=== PATIENT | female | born 1940 | race Caucasian/White ===

== ENCOUNTER 2018-05-04 15:16 | Inpatient (IN) | payer MEDICARE ==
[~2018-05-04] VITALS: Ht 157.5 cm; Wt 78.2 kg
[~2018-05-04 15:16] MED LIST: ASCO10007 PO; Aspirin PO; CELE200 PO; ESTR-7 PO; HYDR-2132 PO; MULT1TAB70 PO; PRAV40TA3 PO; RABE20TA27 PO; SPIR25TA6 PO; TRIA1CAP6 PO
[2018-05-04 16:15] LABS: BASOPHILS % (AUTO) 1.5 % (0.0-5.0); EOSINOPHILS % (AUTO) 1.7 % (0.0-8.0); HEMATOCRIT 43.2 % (36-48); LYMPHOCYTES % (AUTO) 24.2 % (21.0-51.0); MEAN CORPUSCULAR HEMOGLOBIN 31.1 pg (27.0-33.0); MEAN CORPUSCULAR HGB CONC 33.8 g/dL (32.0-36.0); MEAN CORPUSCULAR VOLUME 92.2 fL (79-99); NEUTROPHILS % (AUTO) 65.6 % (40.0-77.0); NUCLEATED RED BLOOD CELLS 0.1 % (0.0-0.19); PLATELET COUNT (AUTO) 314 K/uL (130-400); RED BLOOD CELL COUNT(AUTO) 4.68 MIL/uL (4.00-5.50); RED CELL DISTRIBUTION WIDTH 12.6 % (11.0-15.5); WHITE BLOOD COUNT (AUTO) 8.7 K/uL (4.8-10.8)
[2018-05-04 16:41] LABS: APPEARANCE,URINE CLEAR (CLEAR); BILIRUBIN,URINE NEGATIVE (NEGATIVE); COLOR,URINE YELLOW (YELLOW); GLUCOSE, URINE (UA) NEGATIVE (NEGATIVE); KETONES,URINE NEGATIVE (NEGATIVE); LEUKOCYTE ESTERASE ,URINE TRACE (NEGATIVE); NITRATE,URINE NEGATIVE (NEGATIVE); OCCULT BLOOD,URINE NEGATIVE (NEGATIVE); PH,URINE 7.5 (5.0-8.0); PROTEIN,URINE NEGATIVE (NEGATIVE); UROBILINOGEN,URINE 0.2 mg/dL (0.2-1.0)
[2018-05-04 16:43] LABS: INR 0.93 (0.85-1.15); PARTIAL THROMBOPLASTIN TIME 29.4 SEC (26.3-35.5); PROTHROMBIN TIME 9.8 SEC (9.6-11.6)
[2018-05-04 16:50] LABS: ALBUMIN 3.8 g/dL (3.5-5.0); BILIRUBIN,TOTAL 0.4 mg/dL (0.2-1.0); TOTAL PROTEIN, SERUM 7.6 g/dL (6.0-8.3)
[2018-05-04 17:21] LABS: AMORPHOUS SEDIMENT,UR Few /LPF (None Seen); BACTERIA,URINE Few /HPF (None Seen); RBC,URINE None Seen /HPF (0-1); SQUAMOUS EPITHELIAL CELL,UR None Seen /HPF (0-2); WBC,URINE 0-1 /HPF (0-1)
[2018-05-04] MEDS ORDERED: GADODIAMIDE 5 MMOL/10 ML VIAL 5 MMOL/10 ML ML IV ONE (17:56)
[2018-05-04] MEDS ORDERED: GLUCAGON 1MG KIT 1 MG ML IM PRN (19:30)
[2018-05-04] MEDS ORDERED: DEXTROSE 50%-WATER 50 ML DISP.SYRIN IV PRN (19:30)
[2018-05-04 19:36] LABS: HEMOGLOBIN A1C 6.3 % (4.0-6.0)
[2018-05-04] MEDS: INSULIN HUMULIN R 100 UNIT/ML 3ML SQ SCH (21:00)
[2018-05-04] MEDS ORDERED: ONDANSETRON HCL 4 MG/2 ML VIAL IV PRN (22:15)
[2018-05-04] MEDS: SODIUM CHLORIDE 0.9% 1000ML 1,000 ML IV SCH (22:15)
[2018-05-04] MEDS ORDERED: HYDROCODONE/ACETAMINOPHEN 5/325 MG TAB PO PRN (22:15)
[2018-05-05] MEDS ORDERED: SODIUM CHLORIDE 0.9% 1000ML 1,000 ML IV ONE (00:11)
[2018-05-05 01:50] VITALS: BP 173/80
[2018-05-05 04:05] VITALS: BP 191/80
[2018-05-05] MEDS: HYDROCODONE/ACETAMINOPHEN 5/325 MG TAB PO PRN ×2 (04:05→20:25)
[2018-05-05 05:32] LABS: BASOPHILS % (AUTO) 0.9 % (0.0-5.0); EOSINOPHILS % (AUTO) 2.6 % (0.0-8.0); HEMATOCRIT 40.4 % (36-48); LYMPHOCYTES % (AUTO) 27.7 % (21.0-51.0); MEAN CORPUSCULAR HEMOGLOBIN 30.1 pg (27.0-33.0); MEAN CORPUSCULAR HGB CONC 32.9 g/dL (32.0-36.0); MEAN CORPUSCULAR VOLUME 91.7 fL (79-99); MONOCYTES % (AUTO) 9.8 % (3.0-13.0); NUCLEATED RED BLOOD CELLS 0.1 % (0.0-0.19); PLATELET COUNT (AUTO) 251 K/uL (130-400); RED BLOOD CELL COUNT(AUTO) 4.41 MIL/uL (4.00-5.50); RED CELL DISTRIBUTION WIDTH 12.6 % (11.0-15.5); WHITE BLOOD COUNT (AUTO) 8.6 K/uL (4.8-10.8)
[2018-05-05 05:44] LABS: INR 0.97 (0.85-1.15); PARTIAL THROMBOPLASTIN TIME 29.4 SEC (26.3-35.5); PROTHROMBIN TIME 10.2 SEC (9.6-11.6)
[2018-05-05 05:48] LABS: ALBUMIN 3.4 g/dL (3.5-5.0); BILIRUBIN,TOTAL 0.5 mg/dL (0.2-1.0); POTASSIUM 3.9 mmol/L (3.5-5.1); TOTAL PROTEIN, SERUM 6.7 g/dL (6.0-8.3)
[2018-05-05] MEDS: INSULIN HUMULIN R 100 UNIT/ML 3ML SQ SCH ×4 (06:29→20:25)
[2018-05-05] MEDS: SODIUM CHLORIDE 0.9% 1000ML 1,000 ML IV SCH (08:15)
[2018-05-05] MEDS: ENOXAPARIN SODIUM 30 MG/0.3 ML SQ SCH (09:00)
[2018-05-05 09:03] VITALS: BP 152/77
[2018-05-05] MEDS: PANTOPRAZOLE SODIUM 40 MG TABLET.DR PO SCH (09:21)
[2018-05-05] MEDS: ACETAMINOPHEN 325 MG TAB PO PRN (09:22)
[2018-05-05] MEDS ORDERED: CHOL100040 PO (11:27)
[2018-05-05] MEDS ORDERED: CYAN-35 PO (11:27)
[2018-05-05] MEDS ORDERED: TRAM50TA4 PO (11:27)
[2018-05-05] MEDS ORDERED: MAGN250T10 PO (11:27)
[2018-05-05 12:37] VITALS: BP 175/93
[2018-05-05 16:29] VITALS: BP 179/74
[2018-05-05 19:30] VITALS: BP 196/92
[2018-05-05] MEDS: METOPROLOL TARTRATE 25 MG TAB PO SCH (20:25)
[2018-05-05] MEDS: MAGNESIUM OXIDE 250 MG PO SCH (20:26)
[2018-05-05] MEDS: TRAMADOL HCL 50 MG TABLET PO SCH (20:26)
[2018-05-05] MEDS ORDERED: NON-FORMULARY MEDICATION 1 EACH (Rabeprazole Sodium 20 MG) PO SCH (21:00)
[2018-05-05] MEDS: LISINOPRIL 10 MG TABLET PO SCH (22:54)
[2018-05-06] VITALS (23 sets, daily range): BP systolic 103–170; BP diastolic 49–92
[2018-05-06 05:49] LABS: BASOPHILS % (AUTO) 1.2 % (0.0-5.0); EOSINOPHILS % (AUTO) 2.6 % (0.0-8.0); HEMATOCRIT 41.8 % (36-48); LYMPHOCYTES % (AUTO) 26.3 % (21.0-51.0); MEAN CORPUSCULAR HEMOGLOBIN 31.5 pg (27.0-33.0); MEAN CORPUSCULAR HGB CONC 33.9 g/dL (32.0-36.0); MEAN CORPUSCULAR VOLUME 92.9 fL (79-99); MONOCYTES % (AUTO) 9.3 % (3.0-13.0); NEUTROPHILS % (AUTO) 60.6 % (40.0-77.0); PLATELET COUNT (AUTO) 278 K/uL (130-400); RED BLOOD CELL COUNT(AUTO) 4.49 MIL/uL (4.00-5.50); RED CELL DISTRIBUTION WIDTH 12.7 % (11.0-15.5); WHITE BLOOD COUNT (AUTO) 8.9 K/uL (4.8-10.8)
[2018-05-06] MEDS: SODIUM CHLORIDE 0.9% 1000ML 1,000 ML IV SCH ×2 (05:50→09:43)
[2018-05-06] MEDS: INSULIN HUMULIN R 100 UNIT/ML 3ML SQ SCH ×4 (05:50→21:45)
[2018-05-06 05:58] LABS: POTASSIUM 3.6 mmol/L (3.5-5.1)
[2018-05-06] MEDS ORDERED: LIDOCAINE PF 2% 5ML ABBOJECT ONE (07:52)
[2018-05-06] MEDS ORDERED: PROPOFOL 10 MG/ML 20ML VIAL IV ONE (07:53)
[2018-05-06] MEDS ORDERED: NEOSTIGMINE 5MG/5ML SYR IV ONE (07:54)
[2018-05-06] MEDS ORDERED: DEXAMETHASONE SOD PHOSPHATE 10MG/ML 1ML VIAL ONE (07:54)
[2018-05-06] MEDS ORDERED: ROCURONIUM 10MG/1ML SYR 10 MG/ML ML ONE (07:54)
[2018-05-06] MEDS ORDERED: ONDANSETRON HCL 4 MG/2 ML VIAL ONE (07:54)
[2018-05-06] MEDS ORDERED: GLYCOPYRROLATE 1 MG/5 ML SYRINGE ONE (07:54)
[2018-05-06] MEDS ORDERED: MIDAZOLAM HCL 1 MG/ML 2ML VIAL ONE (07:54)
[2018-05-06] MEDS ORDERED: FENTANYL CITRATE PF 50 MCG/1 ML 2ML VIAL ONE ×3 (07:55→12:55)
[2018-05-06] MEDS ORDERED: SUCCINYLCHOLINE CHLORIDE 20 MG/ML 10 ML VIAL ONE (07:56)
[2018-05-06] MEDS ORDERED: EPHEDRINE SULFATE 50 MG/ML AMPULE ONE (07:57)
[2018-05-06] MEDS: CYANOCOBALAMIN (VITAMIN B-12) 1,000 MCG TABLET PO SCH (09:00)
[2018-05-06] MEDS: MULTIVITAMIN TABLET PO SCH (09:00)
[2018-05-06] MEDS: ASCORBIC ACID 500 MG TAB PO SCH (09:00)
[2018-05-06] MEDS: ENOXAPARIN SODIUM 30 MG/0.3 ML SQ SCH (09:00)
[2018-05-06] MEDS: **HM** VIT D3 1000 UNITS PO SCH (09:00)
[2018-05-06] MEDS: CELECOXIB 200 MG CAP PO SCH (09:00)
[2018-05-06] MEDS: SPIRONOLACTONE 25 MG TAB PO SCH (09:00)
[2018-05-06] MEDS ORDERED: THROMBIN-JMI 5000 UNIT/VIAL TP ONE (09:02)
[2018-05-06] MEDS ORDERED: BACITRACIN 50,000 UNIT VIAL ONE (09:02)
[2018-05-06] MEDS ORDERED: THROMBIN-JMI 20000 UNIT KIT TP ONE (09:03)
[2018-05-06] MEDS ORDERED: DURAMORPH PF1 MG/ML 10ML AMP IV ONE (09:03)
[2018-05-06] MEDS ORDERED: BUPIVACAINE/EPI/PF 0.25% 30ML VIAL IJ SCH (09:30)
[2018-05-06] MEDS ORDERED: BUPIVACAINE/PF 0.25% 30ML VIAL IJ SCH (09:30)
[2018-05-06] MEDS: METOPROLOL TARTRATE 25 MG TAB PO SCH ×2 (09:33→21:29)
[2018-05-06] MEDS: PANTOPRAZOLE SODIUM 40 MG TABLET.DR PO SCH (09:33)
[2018-05-06] MEDS: LISINOPRIL 10 MG TABLET PO SCH (09:33)
[2018-05-06] MEDS ORDERED: CEFAZOLIN SODIUM 1 GM VIAL ONE ×2 (09:56→13:26)
[2018-05-06] MEDS: BUPIVACAINE/PF 0.25% 50ML VIAL IJ SCH ×2 (10:00→10:05)
[2018-05-06] MEDS ORDERED: BUPIVACAINE/EPI/PF 0.25% 50 ML VIAL ONE (10:37)
[2018-05-06] MEDS ORDERED: SODIUM CHLORIDE 0.9% 10 ML VIAL IVP PRN (13:45)
[2018-05-06] MEDS ORDERED: MORPHINE SULFATE 2 MG/ML 1ML SYG IVP PRN (13:45)
[2018-05-06] MEDS ORDERED: PROMETHAZINE HCL 25 MG/ML 1ML AMPULE IM PRN (13:45)
[2018-05-06] MEDS ORDERED: HYDROCODONE/ACETAMINOPHEN 5/325 MG TAB PO PRN (13:45)
[2018-05-06] MEDS ORDERED: MEPERIDINE-PF 25 MG/ML SYG ONE ×2 (14:12→14:22)
[2018-05-06] MEDS: CEFAZOLIN SODIUM 1 GM VIAL IVP SCH ×2 (18:05→21:30)
[2018-05-06] MEDS: DEXAMETHASONE SOD PHOSPHATE 4 MG/ML 1ML VIAL IVP SCH ×2 (18:06→18:36)
[2018-05-06] MEDS: LACTATED RINGERS 1000ML 1,000 ML IV SCH (18:09)
[2018-05-06] MEDS: MAGNESIUM OXIDE 250 MG PO SCH (21:00)
[2018-05-06] MEDS: TRAMADOL HCL 50 MG TABLET PO SCH (21:29)
[2018-05-06] MEDS ORDERED: BENZOCAINE/MENTH/CETYLPYRD CL 1 EACH LOZENGE MM PRN (22:45)
[2018-05-07] MEDS: DEXAMETHASONE SOD PHOSPHATE 4 MG/ML 1ML VIAL IVP SCH ×2 (02:21→08:26)
[2018-05-07] MEDS: ACETAMINOPHEN 325 MG TAB PO PRN (02:34)
[2018-05-07] MEDS: LACTATED RINGERS 1000ML 1,000 ML IV SCH (03:04)
[2018-05-07 03:39] VITALS: BP 114/53
[2018-05-07 05:21] LABS: HEMATOCRIT 36.7 % (36-48); MEAN CORPUSCULAR HEMOGLOBIN 30.2 pg (27.0-33.0); MEAN CORPUSCULAR HGB CONC 32.7 g/dL (32.0-36.0); MEAN CORPUSCULAR VOLUME 92.6 fL (79-99); NUCLEATED RED BLOOD CELLS 0.2 % (0.0-0.19); PLATELET COUNT (AUTO) 233 K/uL (130-400); RED BLOOD CELL COUNT(AUTO) 3.97 MIL/uL (4.00-5.50); RED CELL DISTRIBUTION WIDTH 12.9 % (11.0-15.5); WHITE BLOOD COUNT (AUTO) 13.8 K/uL (4.8-10.8)
[2018-05-07 05:27] LABS: CREATININE 0.9 mg/dL (0.5-1.5); POTASSIUM 3.7 mmol/L (3.5-5.1)
[2018-05-07] MEDS: CEFAZOLIN SODIUM 1 GM VIAL IVP SCH (05:45)
[2018-05-07 07:00] VITALS: BP 128/88
[2018-05-07] MEDS: INSULIN HUMULIN R 100 UNIT/ML 3ML SQ SCH (07:30)
[2018-05-07] MEDS: CELECOXIB 200 MG CAP PO SCH (08:26)
[2018-05-07] MEDS: SPIRONOLACTONE 25 MG TAB PO SCH (08:26)
[2018-05-07] MEDS: CYANOCOBALAMIN (VITAMIN B-12) 1,000 MCG TABLET PO SCH (08:27)
[2018-05-07] MEDS: ASCORBIC ACID 500 MG TAB PO SCH (08:27)
[2018-05-07] MEDS: PANTOPRAZOLE SODIUM 40 MG TABLET.DR PO SCH (08:28)
[2018-05-07] MEDS: LISINOPRIL 10 MG TABLET PO SCH (08:28)
[2018-05-07] MEDS: METOPROLOL TARTRATE 25 MG TAB PO SCH (08:28)
[2018-05-07] MEDS: MULTIVITAMIN TABLET PO SCH (08:28)
[2018-05-07] MEDS: **HM** VIT D3 1000 UNITS PO SCH (08:29)
[2018-05-07] MEDS: ENOXAPARIN SODIUM 30 MG/0.3 ML SQ SCH (08:29)
[2018-05-07] MEDS ORDERED: TRIAMTERENE/HYDROCHLOROTHIAZIDE 37.5/25 MG CAP PO SCH (09:00)
== END 2018-05-07 11:30 | disposition home or self-care (01) | DRG 41 ==
LOC: EDH 15:16 → EDHIP 19:23 → 3CH 23:28
PROVIDERS: ADMIT Hospitalist; ATTEND Hospitalist
PROC: 01NB0ZZ Release Lumbar Nerve, Open Approach (ICD-10-PCS; principal; 2018-05-06 10:11)
PROC: 3E0S3BZ Introduction of Anesthetic Agent into Epidural Space, Percutaneous Approach (ICD-10-PCS; 2018-05-06 10:11)
PROC: BR191ZZ Fluoroscopy of Lumbar Spine using Low Osmolar Contrast (ICD-10-PCS; 2018-05-06 10:11)
DX: G83.4 Cauda equina syndrome (principal); N39.0 Urinary tract infection, site not specified; M48.061 Spinal stenosis, lumbar region without neurogenic claudication; Z68.31 Body mass index [BMI] 31.0-31.9, adult; E66.9 Obesity, unspecified; M43.10 Spondylolisthesis, site unspecified; R32 Unspecified urinary incontinence; M17.11 Unilateral primary osteoarthritis, right knee; M41.9 Scoliosis, unspecified; R73.03 Prediabetes; Z96.653 Presence of artificial knee joint, bilateral; Z87.442 Personal history of urinary calculi; Z98.1 Arthrodesis status; Z90.710 Acquired absence of both cervix and uterus; Z98.42 Cataract extraction status, left eye; Z98.41 Cataract extraction status, right eye; Z82.0 Family history of epilepsy and other diseases of the nervous system; Z82.49 Family history of ischemic heart disease and other diseases of the circulatory system; Z83.3 Family history of diabetes mellitus
CPT/HCPCS: 36415; 71045; 72020; 72114; 72158; 80048; 80053; 81001; 82948; 83036; 85025; 85027; 85610; 85730; 87088; 93005; A4344; A9579; J0330; J0690; J1100; J1650; J1815; J2001; J2175; J2250; J2274; J2405; J2704; J2710; J3010; J3490; J7030; J7120

== ENCOUNTER → 2018-09-14 | Outpatient (CLI) | payer MEDICARE ==
[~2018-09-14] MED LIST changes: -Aspirin PO; +CHOL100040 PO; +CYAN-35 PO; -ESTR-7 PO; -HYDR-2132 PO; +MAGN250T10 PO; -PRAV40TA3 PO; +TRAM50TA4 PO
== END | disposition home or self-care (01) ==
LOC: RAH 12:20
PROVIDERS: ATTEND Family Medicine
DX: M17.12 Unilateral primary osteoarthritis, left knee (principal); M47.22 Other spondylosis with radiculopathy, cervical region
CPT/HCPCS: 72052; 73562

== ENCOUNTER → 2018-10-30 | Outpatient (CLI) | payer MEDICARE | END | disposition home or self-care (01) | LOC: RAH 10:55 | PROVIDERS: ATTEND Physical Medicine & Rehabilitation | DX: M47.22 Other spondylosis with radiculopathy, cervical region (principal); M25.78 Osteophyte, vertebrae; M48.02 Spinal stenosis, cervical region; M41.85 Other forms of scoliosis, thoracolumbar region | CPT/HCPCS: 72082; 72141 ==

== ENCOUNTER → 2019-01-11 | Outpatient (CLI) | payer MEDICARE ==
[~2019-01-11] MED LIST changes: +DOCU50CA13 PO; -TRIA1CAP6 PO; +[UNRECOGNIZED DRUG - CODE] PO; +[UNRECOGNIZED DRUG - REMARK] PO
== END | disposition home or self-care (01) ==
LOC: OIH 09:15
PROVIDERS: ATTEND Neurological Surgery
DX: M47.812 Spondylosis without myelopathy or radiculopathy, cervical region (principal); M43.22 Fusion of spine, cervical region; Z98.890 Other specified postprocedural states
CPT/HCPCS: 72040

== ENCOUNTER → 2020-07-14 | Outpatient (CLI) | payer MEDICARE ==
[~2020-07-14] MED LIST changes: +ASCO100031 PO; -ASCO10007 PO; +MULT-660 PO; -MULT1TAB70 PO
== END | disposition home or self-care (01) ==
LOC: RAH 11:17
PROVIDERS: ATTEND Neurological Surgery
DX: M47.812 Spondylosis without myelopathy or radiculopathy, cervical region (principal); M43.16 Spondylolisthesis, lumbar region; M51.36 Other intervertebral disc degeneration, lumbar region
CPT/HCPCS: 72040; 72100

== ENCOUNTER → 2020-07-17 | Outpatient (CLI) | payer MEDICARE | END | disposition home or self-care (01) | LOC: LAB 10:52 | PROVIDERS: ATTEND Neurological Surgery | DX: M47.22 Other spondylosis with radiculopathy, cervical region (principal) | CPT/HCPCS: 36415; 82565; 84520 ==

== ENCOUNTER → 2020-08-01 | Outpatient (CLI) | payer MEDICARE ==
[~2020-08-01] MED LIST changes: +GADODIAMIDE 10 MMOL/20 ML VIAL IV ONE; -RABE20TA27 PO; +RABE20TA30 PO
== END | disposition home or self-care (01) ==
LOC: RAH 13:57
PROVIDERS: ATTEND Neurological Surgery
DX: M62.838 Other muscle spasm (principal); M51.16 Intervertebral disc disorders with radiculopathy, lumbar region; M48.02 Spinal stenosis, cervical region; M50.122 Cervical disc disorder at C5-C6 level with radiculopathy
CPT/HCPCS: 72156; 72158; A9579

== ENCOUNTER → 2020-08-22 | Outpatient (CLI) | payer MEDICARE ==
[~2020-08-22] MED LIST changes: -GADODIAMIDE 10 MMOL/20 ML VIAL IV ONE
== END | disposition home or self-care (01) ==
LOC: RAH 12:42
PROVIDERS: ATTEND Physical Medicine & Rehabilitation
DX: I67.82 Cerebral ischemia (principal); G31.9 Degenerative disease of nervous system, unspecified
CPT/HCPCS: 70551

== ENCOUNTER → 2020-11-22 | Outpatient (CLI) | payer MEDICARE | END | disposition home or self-care (01) | LOC: RAH 11:36 | PROVIDERS: ATTEND Physical Medicine & Rehabilitation | DX: M43.16 Spondylolisthesis, lumbar region (principal); M48.07 Spinal stenosis, lumbosacral region; M48.05 Spinal stenosis, thoracolumbar region; M48.02 Spinal stenosis, cervical region; M50.33 Other cervical disc degeneration, cervicothoracic region; M48.03 Spinal stenosis, cervicothoracic region; M85.88 Other specified disorders of bone density and structure, other site; W19.XXXA Unspecified fall, initial encounter; Y93.89 Activity, other specified; Y92.89 Other specified places as the place of occurrence of the external cause; Y99.8 Other external cause status | CPT/HCPCS: 72100; 72141; 72220 ==

== ENCOUNTER → 2021-05-17 | Outpatient (CLI) | payer MEDICARE | END | disposition home or self-care (01) | LOC: RAH 09:51 | PROVIDERS: ATTEND Physical Medicine & Rehabilitation | DX: M19.012 Primary osteoarthritis, left shoulder (principal); M75.42 Impingement syndrome of left shoulder | CPT/HCPCS: 73030 ==

== ENCOUNTER → 2021-05-23 | Outpatient (CLI) | payer MEDICARE | END | disposition home or self-care (01) | LOC: RAH 08:04 | PROVIDERS: ATTEND Physical Medicine & Rehabilitation | DX: M75.122 Complete rotator cuff tear or rupture of left shoulder, not specified as traumatic (principal); M19.012 Primary osteoarthritis, left shoulder; M75.42 Impingement syndrome of left shoulder; M25.412 Effusion, left shoulder | CPT/HCPCS: 73221 ==

== ENCOUNTER → 2022-04-15 | Outpatient (CLI) | payer MEDICARE | END | disposition home or self-care (01) | LOC: RAH 08:56 | PROVIDERS: ATTEND Neurological Surgery | DX: M47.816 Spondylosis without myelopathy or radiculopathy, lumbar region (principal); M43.26 Fusion of spine, lumbar region | CPT/HCPCS: 72100 ==

== ENCOUNTER 2022-05-07 06:03 | Day surgery (SDC) | payer MEDICARE ==
[2022-05-06 09:37] LABS: BASOPHILS % (AUTO) 1.5 % (0.0-5.0); HEMATOCRIT 43.1 % (36-48); LYMPHOCYTES % (AUTO) 25.2 % (21.0-51.0); MEAN CORPUSCULAR HEMOGLOBIN 28.9 pg (27.0-33.0); MEAN CORPUSCULAR HGB CONC 31.8 g/dL (32.0-36.0); MEAN CORPUSCULAR VOLUME 90.9 fL (79-99); MONOCYTES % (AUTO) 7.5 % (3.0-13.0); NEUTROPHILS % (AUTO) 60.6 % (40.0-77.0); PLATELET COUNT (AUTO) 264 K/uL (130-400); RED BLOOD CELL COUNT(AUTO) 4.74 MIL/uL (4.00-5.50); RED CELL DISTRIBUTION WIDTH 14.5 % (11.0-15.5); WHITE BLOOD COUNT (AUTO) 8.2 K/uL (4.8-10.8)
[2022-05-06 09:47] LABS: CREATININE 0.9 mg/dL (0.5-1.5); POTASSIUM 4.6 mmol/L (3.5-5.1)
[2022-05-06 10:27] VITALS: BP 199/93
[~2022-05-07] VITALS: Ht 154.9 cm; Wt 69.2 kg
[2022-05-07] VITALS (12 sets, daily range): BP systolic 130–188; BP diastolic 64–94
[~2022-05-07 06:03] MED LIST changes: +BUPIVACAINE/PF 0.25% 30ML VIAL IJ ONE; +BUPIVACAINE/PF 0.5% 30ML VIAL ONE; -CHOL100040 PO; +CHOL200074 PO; -CYAN-35 PO; -DOCU50CA13 PO; +HYDROCODONE/ACETAMINOPHEN 5/325 MG TAB PO PRN; +LIDOCAINE HCL 1% 20 ML VIAL ONE; +ONDANSETRON 4MG INJ IVP PRN; +PRAV40TA3 PO; +SENN-107 PO; +SODIUM BICARB [NEONATAL] 4.2% 10ML SYG ONE; +TEMAZEPAM 15 MG CAPSULE PO PRN; +TRAM100T40 PO; -TRAM50TA4 PO; +TRIA1TAB93 PO; +VIT1CAPS47 PO; -[UNRECOGNIZED DRUG - CODE] PO; -[UNRECOGNIZED DRUG - REMARK] PO
[2022-05-07] MEDS ORDERED: 0.9%NACL 1000ML 1,000 ML IV ONE (06:24)
[2022-05-07] MEDS ORDERED: LIDOCAINE HCL 1% 10 ML VIAL ONE (06:31)
[2022-05-07] MEDS ORDERED: FENTANYL CITRATE PF 50 MCG/1 ML 2ML VIAL ONE (07:26)
[2022-05-07] MEDS ORDERED: MIDAZOLAM HCL 1 MG/ML 2ML VIAL ONE (07:26)
[2022-05-07] MEDS ORDERED: HYDRALAZINE 20MG/ML VIAL ONE (08:49)
== END 2022-05-07 10:50 | disposition home or self-care (01) ==
LOC: DAH 06:03
PROVIDERS: ATTEND Neurological Surgery
DX: M53.3 Sacrococcygeal disorders, not elsewhere classified (principal); Z20.822 Contact with and (suspected) exposure to COVID-19; Z79.899 Other long term (current) drug therapy; Z79.01 Long term (current) use of anticoagulants
CPT/HCPCS: 87426; 80048; 85025; 36415; 72202; 82948; G0260; A4663; A4215 ×2; J3010; J7030; J3490 ×2; J0360; J2250; J1030 ×2; A4223; A4222; A4221

== ENCOUNTER → 2022-05-13 | Outpatient (CLI) | payer MEDICARE ==
[~2022-05-13] MED LIST changes: -BUPIVACAINE/PF 0.25% 30ML VIAL IJ ONE; -BUPIVACAINE/PF 0.5% 30ML VIAL ONE; -HYDROCODONE/ACETAMINOPHEN 5/325 MG TAB PO PRN; -LIDOCAINE HCL 1% 20 ML VIAL ONE; -ONDANSETRON 4MG INJ IVP PRN; -SODIUM BICARB [NEONATAL] 4.2% 10ML SYG ONE; -TEMAZEPAM 15 MG CAPSULE PO PRN
== END | disposition home or self-care (01) ==
LOC: RAH 12:51
PROVIDERS: ATTEND Physical Medicine & Rehabilitation
DX: M19.012 Primary osteoarthritis, left shoulder (principal); M25.512 Pain in left shoulder; Z98.890 Other specified postprocedural states
CPT/HCPCS: 73221

== ENCOUNTER 2022-08-09 19:00 | Observation (INO) | payer MEDICARE ==
[~2022-08-09] VITALS: Ht 154.9 cm; Wt 68.5 kg
[2022-08-09 09:44] VITALS: BP 140/67
[2022-08-09 09:59] LABS: BASOPHILS % (AUTO) 1.3 % (0.0-5.0); EOSINOPHILS % (AUTO) 3.6 % (0.0-8.0); HEMATOCRIT 48.3 % (36-48); LYMPHOCYTES % (AUTO) 32.7 % (21.0-51.0); MEAN CORPUSCULAR HGB CONC 32.7 g/dL (32.0-36.0); MEAN CORPUSCULAR VOLUME 91.8 fL (79-99); MONOCYTES % (AUTO) 7.7 % (3.0-13.0); NEUTROPHILS % (AUTO) 54.4 % (40.0-77.0); PLATELET COUNT (AUTO) 321 K/uL (130-400); RED BLOOD CELL COUNT(AUTO) 5.26 MIL/uL (4.00-5.50); RED CELL DISTRIBUTION WIDTH 12.2 % (11.0-15.5); WHITE BLOOD COUNT (AUTO) 7.6 K/uL (4.8-10.8)
[2022-08-09 10:03] LABS: APPEARANCE,URINE CLEAR (CLEAR); BILIRUBIN,URINE NEGATIVE (NEGATIVE); COLOR,URINE LIGHT-YELLOW (YELLOW); GLUCOSE, URINE (UA) NEGATIVE (NEGATIVE); KETONES,URINE NEGATIVE (NEGATIVE); LEUKOCYTE ESTERASE ,URINE NEGATIVE Leu/uL (NEGATIVE); NITRATE,URINE NEGATIVE (NEGATIVE); OCCULT BLOOD,URINE NEGATIVE (NEGATIVE); PH,URINE 6.5 (5.0-8.0); PROTEIN,URINE NEGATIVE (NEGATIVE); UROBILINOGEN,URINE 0.2 mg/dL (0.2-1.0)
[2022-08-09 10:08] LABS: ALBUMIN 4.1 g/dL (3.5-5.0); CARBON DIOXIDE 30 mmol/L (21-32); CHLORIDE 97 mmol/L (101-111); CREATININE 1.2 mg/dL (0.5-1.5); GLOMERULAR FILTR. RATE CALC 46 mL/min (>60); GLUCOSE,RANDOM 154 mg/dL (70-105); POTASSIUM 3.7 mmol/L (3.5-5.1); SODIUM SERUM 135 mmol/L (136-145); UREA NITROGEN, BLOOD 24 mg/dL (7-18)
[2022-08-09 10:09] LABS: CRP QUANTITATIVE < 2.00 mg/L (0.00-9.0)
[2022-08-09 10:11] LABS: INR 0.99 (0.85-1.15); PROTHROMBIN TIME 10.8 SEC (9.6-11.6)
[2022-08-09 10:12] LABS: PARTIAL THROMBOPLASTIN TIME 29.9 SEC (26.3-35.5)
[~2022-08-09 19:00] MED LIST changes: -CHOL200074 PO; -MAGN250T10 PO; +MAGN400T53 PO; +MULT-1250 PO; -MULT-660 PO; +RABE20 PO; -RABE20TA30 PO; -SPIR25TA6 PO; -VIT1CAPS47 PO; +VITAMIN B12 PO; +VITAMIN D3 PO
[2022-08-12] VITALS (27 sets, daily range): BP systolic 121–199; BP diastolic 51–87
[2022-08-12] MEDS ORDERED: CEFAZOLIN SODIUM 1 GM VIAL IVPB SCH (06:00)
[2022-08-12] MEDS ORDERED: 0.9%NACL 1000ML 1,000 ML IV ONE (07:52)
[2022-08-12] MEDS ORDERED: ROPIVACAINE 0.5% 5MG/ML 30ML IJ ONE (11:06)
[2022-08-12] MEDS ORDERED: TRANEXAMIC ACID 1000MG/10ML ONE (12:14)
[2022-08-12] MEDS ORDERED: LIDOCAINE PF 100MG/5ML (2%) SYRINGE 5ML ONE (12:57)
[2022-08-12] MEDS ORDERED: GLYCOPYRROLATE 1 MG/5 ML SYRINGE ONE (12:58)
[2022-08-12] MEDS ORDERED: FENTANYL CITRATE PF 50 MCG/1 ML 2ML VIAL ONE (12:58)
[2022-08-12] MEDS ORDERED: ROCURONIUM 10MG/1ML SYR 10 MG/ML ML ONE (12:58)
[2022-08-12] MEDS ORDERED: PROPOFOL 10 MG/ML 20ML VIAL IV ONE (12:58)
[2022-08-12] MEDS ORDERED: CEFAZOLIN SODIUM 2 GM VIAL IVPB ONE (13:20)
[2022-08-12] MEDS ORDERED: EPHEDRINE SULFATE 50 MG/ML AMPULE ONE (14:03)
[2022-08-12] MEDS ORDERED: ONDANSETRON 4MG INJ ONE (15:39)
[2022-08-12] MEDS ORDERED: DEXAMETHASONE SOD PHOSPHATE 10MG/ML 1ML VIAL ONE (15:39)
[2022-08-12] MEDS ORDERED: NEOSTIGMINE 5MG/5ML SYR IV ONE (15:44)
[2022-08-12] MEDS ORDERED: LABETALOL 20MG VIAL IV ONE (16:20)
[2022-08-12] MEDS ORDERED: DiphenhydrAMINE HCL 50 MG/ML VIAL IVP PRN (16:30)
[2022-08-12] MEDS ORDERED: POTASSIUM CHLORIDE 10% ELIXIR 20 MEQ/15 ML UDCUP PO PRN (16:30)
[2022-08-12] MEDS ORDERED: POTASSIUM CHLORIDE 20MEQ/100ML 100 ML IV PRN (16:30)
[2022-08-12] MEDS ORDERED: FE FUMARATE/FA/MV, MIN COMB#15 1 TAB PO PRN (16:30)
[2022-08-12] MEDS ORDERED: TRAMADOL HCL 50 MG TABLET PO PRN (16:30)
[2022-08-12] MEDS ORDERED: ONDANSETRON 4MG INJ IVP PRN (16:30)
[2022-08-12] MEDS ORDERED: LIDOCAINE HCL-MPF 1% 2ML VIAL IV PRN (16:30)
[2022-08-12] MEDS ORDERED: CALCIUM CARB 500MG PO PRN (16:30)
[2022-08-12] MEDS ORDERED: HYDROCODONE/ACETAMINOPHEN 5/325 MG TAB PO PRN (16:30)
[2022-08-12] MEDS ORDERED: HYDRALAZINE 20MG/ML VIAL ONE (16:36)
[2022-08-12] MEDS: KETOROLAC 15MG/ML VIAL (15MG/ML) IV SCH (16:48)
[2022-08-12] MEDS: 0.9%NACL 1000ML 1,000 ML IV SCH (17:15)
[2022-08-12] MEDS ORDERED: DOCUSATE SODIUM PO PRN (18:30)
[2022-08-12] MEDS ORDERED: [UNRECOGNIZED DRUG - OTHER] PO PRN (18:30)
[2022-08-12] MEDS ORDERED: SENNOSIDES PO PRN (18:30)
[2022-08-12] MEDS: GABAPENTIN 100 MG CAPSULE PO SCH (20:05)
[2022-08-12] MEDS: DOCUSATE SODIUM 100 MG CAP PO SCH ×2 (20:05)
[2022-08-12] MEDS ORDERED: PANTOPRAZOLE 40 MG TAB DR PO SCH (21:00)
[2022-08-12] MEDS ORDERED: MAGNESIUM OXIDE 400 MG TABLET PO SCH (21:00)
[2022-08-12] MEDS ORDERED: RABEPRAZOLE SODIUM 20 MG PO SCH (21:00)
[2022-08-12] MEDS: CEFAZOLIN SODIUM 1 GM VIAL IVP SCH (21:51)
[2022-08-13 00:22] VITALS: BP 125/56
[2022-08-13] MEDS: KETOROLAC 15MG/ML VIAL (15MG/ML) IV SCH ×2 (01:20→08:30)
[2022-08-13] MEDS: 0.9%NACL 1000ML 1,000 ML IV SCH ×2 (04:32→11:53)
[2022-08-13] MEDS: CEFAZOLIN SODIUM 1 GM VIAL IVP SCH (04:40)
[2022-08-13 04:45] VITALS: BP 113/54
[2022-08-13 05:26] LABS: HEMATOCRIT 37.3 % (36-48); MEAN CORPUSCULAR HGB CONC 32.4 g/dL (32.0-36.0); MEAN CORPUSCULAR VOLUME 92.3 fL (79-99); RED BLOOD CELL COUNT(AUTO) 4.04 MIL/uL (4.00-5.50); RED CELL DISTRIBUTION WIDTH 12.3 % (11.0-15.5); WHITE BLOOD COUNT (AUTO) 12.1 K/uL (4.8-10.8)
[2022-08-13 05:43] LABS: CREATININE 1.2 mg/dL (0.5-1.5); POTASSIUM 3.6 mmol/L (3.5-5.1)
[2022-08-13 08:00] VITALS: BP 161/76
[2022-08-13] MEDS ORDERED: POLYETHYLENE GLYCOL 3350 17 GM POWD.PACK PO SCH (09:00)
[2022-08-13] MEDS ORDERED: ASCORBIC ACID 500 MG TAB PO SCH (09:00)
[2022-08-13] MEDS: DOCUSATE SODIUM 100 MG CAP PO SCH ×2 (09:00→10:21)
[2022-08-13] MEDS ORDERED: PRAVASTATIN SODIUM 40 MG PO SCH (09:00)
[2022-08-13] MEDS ORDERED: CYANOCOBALAMIN (VITAMIN B-12) 1,000 MCG TABLET PO SCH (09:00)
[2022-08-13] MEDS ORDERED: TRIAMTERENE PO SCH (09:00)
[2022-08-13] MEDS ORDERED: NON-FORMULARY MEDICATION 1 EACH ([Vitamin B12] 1,000 MCG) PO SCH (09:00)
[2022-08-13] MEDS ORDERED: NON-FORMULARY MEDICATION 1 EACH (Multivits-Min/Iron/FA/Lutein (Centrum Silver Women Tablet PO SCH (09:00)
[2022-08-13] MEDS ORDERED: MULTIVITAMIN TABLET PO SCH (09:00)
[2022-08-13] MEDS ORDERED: NON-FORMULARY MEDICATION 1 EACH (Ascorbic Acid (Vitamin C) 1,000 MG) PO SCH (09:00)
[2022-08-13] MEDS ORDERED: HYDROCHLOROTHIAZIDE PO SCH (09:00)
[2022-08-13] MEDS ORDERED: ASPIRIN 325MG TAB PO SCH (09:00)
[2022-08-13] MEDS: GABAPENTIN 100 MG CAPSULE PO SCH ×2 (10:21→13:40)
[2022-08-13 11:29] VITALS: BP 156/68
[2022-08-13] MEDS: KCL 20 MEQ ERTAB PO PRN ×2 (11:53→13:42)
[2022-08-13 15:32] VITALS: BP 139/54
[2022-08-13] MEDS ORDERED: HYDR-4060 PO (16:31)
[2022-08-13] MEDS ORDERED: GABA100C PO (16:31)
[2022-08-15] MEDS ORDERED: BISACODYL 10 MG SUPP.RECT RC PRN (16:30)
== END 2022-08-13 16:05 | disposition home or self-care (01) ==
LOC: EDSTATUS 19:00 → DAHIP 08-12 07:28 → 4DH 08-12 17:15
PROVIDERS: ADMIT Student in an Organized Health Care Education/Training Program; ATTEND Student in an Organized Health Care Education/Training Program
DX: M75.102 Unspecified rotator cuff tear or rupture of left shoulder, not specified as traumatic (principal); Z20.822 Contact with and (suspected) exposure to COVID-19; M12.812 Other specific arthropathies, not elsewhere classified, left shoulder; D62 Acute posthemorrhagic anemia; E11.9 Type 2 diabetes mellitus without complications; M12.9 Arthropathy, unspecified; Z79.899 Other long term (current) drug therapy
CPT/HCPCS: 82040; 80048 ×2; 85025; 85610; 85730; 87088; 84134; 86140; 87426; 81003; 36415 ×2; 93005; 87641; 23472; 96374; 96375; 64415; 82948 ×6; 73030; 96376; 85027; 97161; 97039; 97116; 97530 ×2; G0378 ×23; A4663; J7030 ×2; A4565; C1776; J3010; J0690 ×4; J3490 ×4; J1100; J2710; J2001; J0360; J2704; J2405; J2795; J1885 ×2; G0168; A4930 ×2; A6254; A5120; A4215; A4223; A4222; A4221; A4600

== ENCOUNTER → 2023-08-01 | Outpatient (CLI) | payer OTHER, MEDICARE ==
[~2023-08-01] MED LIST changes: -CELE200 PO; +GABA100C PO; +HYDR-4060 PO; -TRAM100T40 PO
== END | disposition home or self-care (01) ==
LOC: RAH 13:00
PROVIDERS: ATTEND Physical Medicine & Rehabilitation
DX: G31.89 Other specified degenerative diseases of nervous system (principal); R26.89 Other abnormalities of gait and mobility; R29.6 Repeated falls
CPT/HCPCS: 70551

== ENCOUNTER → 2023-08-04 | Outpatient (CLI) | payer OTHER, MEDICARE | END | disposition home or self-care (01) | LOC: RAH 13:16 | PROVIDERS: ATTEND Physician Assistant | DX: M47.22 Other spondylosis with radiculopathy, cervical region (principal); M48.03 Spinal stenosis, cervicothoracic region | CPT/HCPCS: 72141 ==

== ENCOUNTER → 2024-06-01 | Outpatient (CLI) | payer OTHER, MEDICARE ==
[~2024-06-01] MED LIST changes: +RABE-12 PO; -RABE20 PO
--- NOTE | 2024-06-01 11:24 | HMCIMG ---
CERV SPINE 2-3VWS HISTORY: Post procedural pain COMPARISON: None FINDINGS: 3 images of cervical spine were obtained. Orthopedic fixation plates and screws are seen traversing the C4-C7 levels with disc fusion. There is straightening of normal lordotic curvature which may be related to muscle spasm or positioning. No loss of vertebral height is seen. No fracture or dislocation is seen. Degenerative changes are seen. IMPRESSION: 1. No fracture is seen. 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
== END | disposition home or self-care (01) ==
LOC: RAH 10:39
PROVIDERS: ATTEND Neurological Surgery
DX: Z47.89 Encounter for other orthopedic aftercare (principal); M47.812 Spondylosis without myelopathy or radiculopathy, cervical region; G89.18 Other acute postprocedural pain; Z98.1 Arthrodesis status
CPT/HCPCS: 72040

== ENCOUNTER → 2024-10-05 | Outpatient (CLI) | payer OTHER, MEDICARE ==
--- NOTE | 2024-10-05 12:55 | HMCIMG ---
Exam Type: KNEE 3 VW BILATERAL Clinical Information: Bilateral knee pain Comparison: None Findings: Routine views of the knee are without evidence of fracture, dislocation, arthritic, or inflammatory change. There is status post bilateral knee replacement with adequate visualization and alignment of bony and hardware elements. No complications are seen. There are vascular calcifications. The joint space is well maintained and there is no effusion. IMPRESSION: Status post bilateral knee replacement.
== END | disposition home or self-care (01) ==
LOC: RAH 11:57
PROVIDERS: ATTEND Family Medicine
DX: M25.561 Pain in right knee (principal); M25.562 Pain in left knee; Z96.653 Presence of artificial knee joint, bilateral

== ENCOUNTER → 2024-10-29 | Outpatient (CLI) | payer OTHER, MEDICARE ==
--- NOTE | 2024-10-29 14:31 | HMCIMG ---
Exam Type: HIP UNILAT 2-3VW RIGHT Clinical Information: RIGHT HIP PAIN Comparison: None Findings: The bone examination is unremarkable. No fractures or dislocations are seen. No radiopaque foreign bodies are noted. Soft tissues are preserved. IMPRESSION: Normal examination.
== END | disposition home or self-care (01) ==
LOC: RAH 10:33
PROVIDERS: ATTEND Family Medicine
DX: M25.551 Pain in right hip (principal)
CPT/HCPCS: 73502

== ENCOUNTER → 2024-11-12 | Outpatient (CLI) | payer OTHER, MEDICARE ==
--- NOTE | 2024-11-12 16:09 | HMCIMG ---
CHEST 2VWS HISTORY: Dyspnea COMPARISON: 05/04/2008. FINDINGS: Frontal and lateral projections of the chest were obtained. There are prominent interstitial markings with possible superimposed infiltrates. The heart is borderline enlarged. Aortic calcifications are seen. Left humeral prosthesis is seen. Degenerative changes are seen of the thoracolumbar spine. IMPRESSION: 1. There are prominent interstitial markings.
== END | disposition home or self-care (01) ==
LOC: LAB 15:23
PROVIDERS: ATTEND Family Medicine
DX: R06.00 Dyspnea, unspecified (principal); I10 Essential (primary) hypertension; I70.0 Atherosclerosis of aorta; M47.815 Spondylosis without myelopathy or radiculopathy, thoracolumbar region
CPT/HCPCS: 71046

== ENCOUNTER 2025-05-30 06:53 | Day surgery (SDC) | payer OTHER, MEDICARE ==
[2025-05-26 11:04] VITALS: BP 160/89; PULSE 74; RESP 17; TEMP 97.9
[2025-05-26 11:15] LABS: IMMATURE GRANULOCYTE ABSOLUTE 0.03 K/uL (0-1); NUCLEATED RED BLOOD CELLS 0.0 % (0.0-0.19); PLATELET COUNT (AUTO) 345 K/uL (130-400); RED BLOOD CELL COUNT(AUTO) 4.44 MIL/uL (4.00-5.50); RED CELL DISTRIBUTION WIDTH 13.5 % (11.0-15.5); WHITE BLOOD COUNT (AUTO) 7.8 K/uL (4.8-10.8)
[2025-05-26 11:17] LABS: CREATININE 0.9 mg/dL (0.5-1.0); GLOMERULAR FILTR. RATE CALC 63.0 mL/min (>90); GLUCOSE,RANDOM 153.0 mg/dL (70-105); SODIUM SERUM 136.0 mmol/L (136-145); UREA NITROGEN, BLOOD 13.0 mg/dL (7-18)
[2025-05-26 11:21] LABS: INR 1.04 (0.85-1.15)
--- NOTE | 2025-05-26 13:25 | EKG ---
[facility] Test Date: 2025-05-26 Test Time: 10:44:24 Pat Name: DOMINGUEZ GUTIERREZ Department: [facility] Room: Gender: F Waste Examiner: [id number] : 1940 Requested By: FRANKIE OREILLY Order Number: [id number] Reading MD: Dave Covarrubias Measurements Intervals [place] Rate: 69 P: 75 CA: 71 QRS: -5 QRSD: 102 T: 81 QT: 447 QTc: 478 Interpretive Statements Sinus rhythm Probable left atrial enlargement Consider anteroseptal infarct Compared to ECG 04/20/2025 17:17:31 Atrial premature complex(es) no longer present Myocardial infarct finding still present Electronically Signed On 05-27-2025 08:51:07 CURB SETTER HELPER by Dave Covarrubias Please click the below link to view image of tracing.
--- NOTE | 2025-05-27 09:29 | NUR ---
report dr brown reviewed ekg and bmp. ok to proceed
[2025-05-30] VITALS (16 sets, daily range): BP systolic 33–185; BP diastolic 51–87; PULSE 74–95; RESP 12–18; TEMP 97.2–97.5
[~2025-05-30] VITALS: Ht 154.9 cm; Wt 77.6 kg
[~2025-05-30 06:53] MED LIST changes: -ASCO100031 PO; +ASCO500T19 PO; +CELE200 PO; +CHOL100046 PO; +CYAN-35 PO; +DOCU-403 PO; -GABA100C PO; -HYDR-4060 PO; -MAGN400T53 PO; +OMEP20CA12 PO; -PRAV40TA3 PO; +PRAV40TA62 PO; -RABE-12 PO; -SENN-107 PO; +SERT50TA PO; +TRAM100C3 PO; -TRIA1TAB93 PO; -VITAMIN B12 PO; -VITAMIN D3 PO
[2025-05-30] MEDS ORDERED: LACTATED RINGERS 1000ML 1,000 ML IV ONE (07:01)
[2025-05-30] MEDS ORDERED: MIDAZOLAM HCL 1 MG/ML 2ML VIAL ONE (07:24)
[2025-05-30] MEDS ORDERED: LIDOCAINE HCL/EPINEPHRINE 30 ML VIAL IJ ONE (08:00)
[2025-05-30] MEDS: INDOCYANINE GREEN 25 MG VIAL IJ ONE (09:05)
[2025-05-30] MEDS ORDERED: NEOSTIGMINE METHYLSULFATE 1MG/ML IV ONE (10:03)
[2025-05-30] MEDS ORDERED: GLYCOPYRROLATE 0.2 MG/ML 5 ML VIAL ONE (10:03)
[2025-05-30] MEDS ORDERED: SUGAMMADEX SODIUM 200 MG/2 ML VIAL IV ONE (10:09)
--- NOTE | 2025-05-30 10:12 | OP ---
Operative Note: DATE OF PROCEDURE: 05/30/25 SURGEON: FRANKIE OREILLY MD FOOD SCIENCE TECHNICIAN: [] ANESTHESIA: [] General ANESTHESIOLOGIST/EMAIL MARKETING PROCESSOR: [] PREOPERATIVE DIAGNOSIS: [] Chronic cholecystitis POSTOPERATIVE DIAGNOSIS: [] The same SYNOPSIS: [] PROCEDURE: [] Robotic cholecystectomy ESTIMATED BLOOD LOSS: [] Minimal INDICATIONS: [] DESCRIPTION OF PROCEDURE: [] With the patient prepped and draped we did a supraumbilical incision. Using direct technique I placed a balloon trocar. Insufflation was done to a cm of water Two da Skylar trochars were placed in each side of the abdomen under direct vision. A nother 8 mm Daivinci trochar wasplaced in the right lateral side. I then went to the console and the robot was docked. I took all adhesions from the gallbladder and I started dissecting the triangle of [place]. we used firefly to identify the cystic duct and CBD.The cystic duct and the cystic artery were clearly identified and both were double clipped and divided. I took the gallbladder from below using cautery dissection. After the gallbladder was completely removed and adequate hemostasis was obtained I remove all the instruments from the abdomen. I undocked the robot and I came back to the bedside of the patient. I confirm hemostasis suction and irrigate and I placed the gallbladder in a bag. I took out all the trochars under direct vision and the gallbladder through the supraumbilical incision. I closed the fascia of the supraumbilical incision with a 0 Vicryl [id number]. All incisions were closed with 4-0 Monocryl and Dermabond The patient was transferred stable to the recovery room. FRANKIE OREILLY MD May 30, 2025 10:12
[2025-05-30] MEDS ORDERED: PROMETHAZINE HCL 25 MG/ML 1ML AMPULE IM PRN (10:30)
--- NOTE | 2025-05-30 11:45 | NUR ---
both pt and daughter given verbal and written discharge instructions iv removed site asymptomatic pt taken out via wheelchair daughter driving
== END 2025-05-30 11:48 | disposition home or self-care (01) ==
LOC: DAH 06:53
PROVIDERS: ATTEND Surgery
DX: K81.1 Chronic cholecystitis (principal); J44.9 Chronic obstructive pulmonary disease, unspecified; Z79.01 Long term (current) use of anticoagulants; Z83.3 Family history of diabetes mellitus; Z79.899 Other long term (current) drug therapy; Z98.890 Other specified postprocedural states
CPT/HCPCS: 80048; 85025; 85610; 85730; 36415; 93005; 64488; 47563; 88304; A4223 ×2; A4600; A6260; A4663; J7030; J7120; J3010 ×3; J3490 ×2; J0360; J2250; J2704 ×2; J2405; J2710; J2795; J0690 ×2; C1769; A4930; A4215; A4213; A4222; A4221; A4216; J0665